=== PATIENT | male | born 1985 | race Caucasian/White ===

== ENCOUNTER 2016-07-06 16:14 | Emergency (ER) | payer MEDICAID, OTHER ==
[~2016-07-06] VITALS: Ht 177.8 cm; Wt 80.0 kg
[~2016-07-06 16:14] MED LIST: AMOX500T PO; CLIN1CAP6 PO
[2016-07-06 16:16] VITALS: BP 121/83; PULSE 104; RESP 16; TEMP 98.1; O2SAT 97
[2016-07-06] MEDS ORDERED: BACT800T5 PO (16:31)
--- NOTE | 2016-07-06 16:48 | PD ---
HPI Chief Complaint: Skin Problem Time Seen by Provider: 16:48 Travel History International Travel<30 days: No Contact w/Intl Traveler<30days: No Traveled to known affect area: No History of Present Illness HPI 30-year-old male presents to the emergency department for evaluation of bilateral axillary lumps for 1 week. States that he saw his PCP 3 days ago and was prescribed Bactrim. States that he has seen improvement in the right lump since taking antibiotics however the left has continued to get larger. Denies any discharge or drainage from the site. States that he called his doctor today and was told that he needed to come in and have them drained. He denies any fever, chills, nausea, vomiting. Denies any history of MRSA. No other complaints. PFSH Past Medical History Medical History: Denies Significant Hx Cardiovascular Problems: No Chemotherapy: No Diabetes: No Diminished Hearing: No Endocrine: No Genitourinary: No Musculoskeletal: No Neurologic: No Psychiatric: No Reproductive: No Respiratory: No Radiation Therapy: No Sickle Cell Disease: No Thyroid Disease: No Tetanus Vaccination: > 5 Years Influenza Vaccination: No Past Surgical History Surgical History: No Previous Surgery Social History Alcohol Use: No Tobacco Use: Yes (04/07 ppd) Substance Use: No Allergies-Medications (Allergen,Severity, Reaction): Coded Allergies: No Known Allergies (Verified , 07/06/16) Reported Meds & Prescriptions Reported Meds & Active Scripts Active Reported Bactrim DS (Sulfamethoxazole-Trimethoprim) 800-160 Mg Tab 1 Tab PO BID Review of Systems Except as stated in HPI: all other systems reviewed are Neg Physical Exam Narrative GENERAL: Well-nourished and well-developed pleasant male patient in no acute distress who is nontoxic appearing. SKIN: Warm and dry. Right axilla with 1 cm slightly erythematous indurated mass , no surrounding erythema or warmth, no discharge or drainage. Left axilla with 2 cm tender, erythematous fluctuant mass, no discharge or drainage. HEAD: Normocephalic and atraumatic. EYES: No injection, drainage, or hyphema noted. PERRLA. EOMI. ENT: No nasal drainage noted. Oropharynx is clear. NECK: Supple and the trachea is midline. CARDIOVASCULAR: Regular rate and rhythm. RESPIRATORY: Breath sounds are equal bilaterally with no accessory muscle use, wheezing, rhonchi, or crackles. GASTROINTESTINAL: Abdomen is soft, non-tender, and nondistended. MUSCULOSKELETAL: No obvious deformities, swelling, cyanosis, or ecchymosis is present throughout the upper and lower extremities. Patient has full range of motion without any signs of neurovascular compromise. NEUROLOGICAL: Awake, alert, and oriented. Normal speech and gait. Cranial nerves are grossly intact. Data Data Last Documented VS Vital Signs Date Time Temp Pulse Resp B/P Pulse Ox O2 Delivery O2 Flow Rate FiO2 07/06/16 16:16 98.1 104 16 121/83 97 Orders Wound Culture And Gram Stain (07/06/16 16:49) Acetaminophen (Tylenol) (07/06/16 17:30) MDM Medical Decision Making Medical Screen Exam Complete: Yes Emergency Medical Condition: Yes Differential Diagnosis Abscess versus cyst versus cellulitis Narrative Course 30-year-old male presents to the emergency department for evaluation of axillary abscesses. Patient is afebrile, vital signs are stable. He is on antibiotics for 3 days. The right abscess has improved with the left has gotten worse. The right abscess is indurated and appears to be getting better, does not appear to be amenable to drainage. The left abscess needs to be drained, see procedure narrative. He is advised to continue taking antibiotics. Patient verbalizes understanding and agreement with treatment plan. Procedures Procedure Narrative After the risks and benefits were discussed the following procedure was performed: INCISION AND DRAINAGE OF ABSCESS: The area was prepped and was sterilely draped. A subcutaneous wheal of 1 % Xylocaine with a total number 4 mL was used to anesthetize the area. The area was properly anesthetized. A number 11 scalpel was used to make a 1-cm incision across the area of the abscess. Purulence was expelled. Cultures were obtained. The abscess was drained an irrigated with normal saline. Sterile dressing applied. Diagnosis Primary Impression: Abscesses of both axillae Referrals: Primary Care Physician Patient Instructions: Abscess (ED), Abscess Incision and Drainage (ED), General Instructions Additional Instructions: Apply warm compresses. Continue to take Bactrim as prescribed. Follow-up with your Primary Care Physician. Return to the ED for any acute worsening of symptoms. Med/Other Pt SpecificInfo: Prescription(s) given Disposition: 01 DISCHARGE HOME Condition: Stable Mikayla Galdamez Jul 06, 2016 16:48
[2016-07-06] MEDS ORDERED: ACETAMINOPHEN 500 MG CPLT PO ONE (17:30)
[2016-07-06 18:30] VITALS: RESP 20
== END 2016-07-06 18:30 | disposition home or self-care (01) ==
LOC: NEPC 16:14
DX: L02.412 Cutaneous abscess of left axilla (principal); B95.61 Methicillin susceptible Staphylococcus aureus infection as the cause of diseases classified elsewhere; F17.210 Nicotine dependence, cigarettes, uncomplicated
CPT/HCPCS: 10060; 86403; 87070; 87186; 87205

== ENCOUNTER 2016-08-08 14:32 | Emergency (ER) | payer OTHER ==
[~2016-08-08] VITALS: Ht 177.8 cm; Wt 75.0 kg
[~2016-08-08 14:32] MED LIST changes: -AMOX500T PO; +BACT800T5 PO; -CLIN1CAP6 PO
[2016-08-08 14:33] VITALS: BP 142/97; PULSE 94; RESP 16; TEMP 98.2; O2SAT 99
[2016-08-08] MEDS ORDERED: CEPHALEXIN MONOHYDRATE 500 MG CAP PO ONE (15:00)
[2016-08-08] MEDS ORDERED: LIDOCAINE 1%/EPINEPHrine 1:100,000 SOLN 20 ML VIAL INFIL ONE (15:00)
[2016-08-08] MEDS ORDERED: TETANUS/DIPHTHERIA TOXOID ADULT 0.5 ML VIAL IM ONE (15:00)
[2016-08-08] MEDS ORDERED: SULFAMETHOXAZOLE-TRIMETHOPRIM DS 800-160 MG TAB PO ONE (15:00)
--- NOTE | 2016-08-08 15:04 | PD ---
HPI Chief Complaint: Skin Problem Time Seen by Provider: 14:55 Travel History International Travel<30 days: No Contact w/Intl Traveler<30days: No Traveled to known affect area: No History of Present Illness HPI 30-year-old male with no significant past medical history presents for evaluation. For 6 days he has had an area of skin redness, tenderness, soft tissue swelling the anterior left leg. Symptoms are moderate, aggravated by palpation. No fevers or chills, no drainage. In addition for 4-5 days he has had an area of soft tissue swelling in the finger pad of the left index finger. Symptoms are moderate, throbbing, aggravated by palpation. No drainage. He notes that last week he was helping to tear down a house and he was not wearing gloves and he does not recall a specific puncture wound in either area he feels that it is likely that his skin was damaged. His last tetanus vaccination is unknown. No other complaints. PFSH Past Medical History Cardiovascular Problems: No Chemotherapy: No Diabetes: No Diminished Hearing: No Endocrine: No Genitourinary: No Musculoskeletal: No Neurologic: No Psychiatric: No Reproductive: No Respiratory: No Radiation Therapy: No Sickle Cell Disease: No Thyroid Disease: No Social History Alcohol Use: No Tobacco Use: Yes (04/07 ppd) Substance Use: No Allergies-Medications (Allergen,Severity, Reaction): Coded Allergies: No Known Allergies (Verified , 07/06/16) Reported Meds & Prescriptions Reported Meds & Active Scripts Active Ibuprofen 800 Mg Tab 800 Mg PO Q6HR PRN Keflex (Cephalexin) 500 Mg Cap 500 Mg PO Q8H Bactrim DS (Sulfamethoxazole-Trimethoprim) 800-160 Mg Tab 1 Tab PO BID Reported Bactrim DS (Sulfamethoxazole-Trimethoprim) 800-160 Mg Tab 1 Tab PO BID Review of Systems Except as stated in HPI: all other systems reviewed are Neg Physical Exam Narrative GENERAL: Well-developed well-nourished male in no acute distress SKIN: Warm and dry. There is a new 1.5 cm area of fluctuance on the anterior left leg just distal to the knee. There is some surrounding erythema. There is soft tissue swelling to the left index finger pad consistent with a felon. HEAD: Atraumatic. Normocephalic. EYES: Pupils equal and round. No scleral icterus. No injection or drainage. ENT: No nasal bleeding or discharge. Mucous membranes pink and moist. NECK: Trachea midline. No JVD. CARDIOVASCULAR: Regular rate and rhythm. No murmur appreciated. RESPIRATORY: No accessory muscle use. Clear to auscultation. Breath sounds equal bilaterally. MUSCULOSKELETAL: No obvious deformities. Skin as noted above. Full range of motion of the left hand, left leg. There is no tenderness to palpation along the flexor tendon sheath of the left index finger. NEUROLOGICAL: Awake and alert. No obvious cranial nerve deficits. Motor grossly within normal limits. Normal speech. PSYCHIATRIC: Appropriate mood and affect; insight and judgment normal. Data Data Last Documented VS Vital Signs Date Time Temp Pulse Resp B/P Pulse Ox O2 Delivery O2 Flow Rate FiO2 08/08/16 15:02 98 14 08/08/16 14:33 98.2 142/97 99 Orders Lidocai-Epi 1%-1:100,000 Inj (Xylocaine- (08/08/16 15:00) Tetanus/Diphtheria Tox Adult (Tetanus/Di (08/08/16 15:00) Sulfamet-Trimeth Ds 800-160 Mg (Bactrim (08/08/16 15:00) Cephalexin (Keflex) (08/08/16 15:00) Wound Culture And Gram Stain (08/08/16 15:00) Wound Culture And Gram Stain (08/08/16 15:00) Lidocaine Pf 1% Inj (Xylocaine-Mpf 1% In (08/08/16 15:30) MDM Medical Decision Making Medical Screen Exam Complete: Yes Emergency Medical Condition: Yes Medical Record Reviewed: Yes Differential Diagnosis Felon, paronychia, cellulitis, flexor tenosynovitis Cellulitis, abscess Narrative Course Examination reveals a felon of the left index finger, abscess with cellulitis in the anterior left vasquez. Plan is for incision and drainage of both areas. For thoroughness, wound cultures will be performed of both areas. The patient will be discharged with Bactrim and Keflex. Discussed signs and symptoms that would warrant return to the emergency room. Procedures Procedure Narrative INCISION AND DRAINAGE OF FELON left index finger: The area was prepped and was sterilely draped. Digital block performed with 1% lidocaine with a total number 5 mL was used to anesthetize the area. The area was properly anesthetized. A number 11 scalpel was used to make a 1 -cm incision across the area of the abscess. Cultures were obtained. The abscess was drained an irrigated with normal saline. INCISION AND DRAINAGE OF ABSCESS: The area was prepped and was sterilely draped. A subcutaneous wheal of 1% Xylocaine with epinephrine with a total number 6 mL was used to anesthetize the area. The area was properly anesthetized. A number 11 scalpel was used to make a 1 -cm incision across the area of the abscess. Cultures were obtained. The abscess was drained an irrigated with normal saline. Diagnosis Primary Impression: Cellulitis and abscess of left leg Additional Impression: Felon of finger of left hand Additional Instructions: Medication as prescribed. Wash the areas with warm water and soap twice a day. Soak in warm water a few times a day for 10 minutes at a time. Return for evidence of worsening infection. Med/Other Pt SpecificInfo: Prescription(s) given, Wound Care Scripts Ibuprofen 800 Mg [id number] Mg PO Q6HR PRN (PAIN) #40 TAB Ref 0 Prov:True Tsang MD 08/08/16 Cephalexin (Keflex)500 Mg [id number] Mg PO Q8H #30 CAP Ref 0 Prov:True Tsang MD 08/08/16 Sulfamethoxazole-Trimethoprim (Bactrim DS)800-160 Mg Tab1 Tab PO BID #20 TAB Ref 0 Prov:True Tsang MD 08/08/16 Disposition: 01 DISCHARGE HOME Condition: Stable Willie Cornell August 08, 2016 15:04
[2016-08-08] MEDS ORDERED: LIDOCAINE HCL 1% PF 30 ML VIAL INFIL ONE (15:30)
[2016-08-08] MEDS ORDERED: BACT800T5 PO (15:42)
[2016-08-08] MEDS ORDERED: CEPH-460 PO (15:42)
[2016-08-08] MEDS ORDERED: IBUP800T23 PO (15:42)
== END 2016-08-08 15:53 | disposition home or self-care (01) ==
LOC: NEPD 14:32
DX: L03.116 Cellulitis of left lower limb (principal); L02.416 Cutaneous abscess of left lower limb; L03.012 Cellulitis of left finger; B95.61 Methicillin susceptible Staphylococcus aureus infection as the cause of diseases classified elsewhere
CPT/HCPCS: 10060; 26011; 86403; 87070; 87186; 90471; 90714